=== PATIENT | female | born 1950 | race Caucasian/White ===

== ENCOUNTER 2022-06-17 09:23 | Outpatient (CLI) | payer MEDICARE, BC, SELFPAY ==
[2022-06-17 15:35] LABS: Vitamin B12* 737 pg/mL (243-894)
[2022-06-18 13:14] LABS: Rheumatoid Factor < 10 IU/mL (0-14)
== END 2022-06-17 09:24 | disposition home or self-care (01) ==
PROVIDERS: PCP Physician Assistant Medical; Visit Provider Physician Assistant Medical
DX: E78.5 Hyperlipidemia, unspecified (principal); M25.40 Effusion, unspecified joint; C44.91 Basal cell carcinoma of skin, unspecified
CPT/HCPCS: 82607; 82728; 84443; 86200; 86431

== ENCOUNTER 2022-09-25 13:39 | Outpatient (CLI) | payer MEDICARE, BC, SELFPAY ==
--- NOTE | 2022-09-25 13:45 | MR_ITS ---
[address] [address] Phone:?[phone] Fax:?[phone] Referring Physician Information: Peggy Haney PA-C [id number] [facility] [address] Phone:?[phone] Fax:?[phone] Patient:Laura Robert D.O.B:?1950 Sex:?Female Phone:?[phone] [facility] MRN:?[id number] Exam Date:?09/25/2022 ? EXAM: MRI of the RIGHT SHOULDER, without contrast CLINICAL INFORMATION: Female, 71 years old, with right shoulder pain. INDICATION: Evaluate for rotator cuff tear. PRIOR SURGERY: None reported. PLAIN FILMS: None available. COMPARISONS: No prior MRIs available. TECHNICAL INFORMATION: Using a 1.5T MR scanner and a localizing surface coil: coronal obliques: PD, T2, STIR sagittal obliques: PD, T2 axials: PD, T2 SEDATION: None CONTRAST: None FINDINGS: Bones: Proximal humerus: No fracture or marrow edema/pathology. No humeral Hill-Sachs or reverse Hill-Sachs lesion/impaction or contusion. Glenoid: No fracture or marrow edema/pathology. No osseous Bankart lesion. Rotator cuff and muscles/tendons: Supraspinatus: Moderate supraspinatus tendinopathy, with articular surface fraying, but without discrete tear. Infraspinatus: Mild infraspinatus tendinopathy, without tendon tear or muscle atrophy. Teres minor: No tendinopathy, tear or atrophy. Subscapularis: Mild-moderate tendinopathy of the superior distal subscapularis, without tendon tear or muscle atrophy. Deltoid: No strain or atrophy. Coracoacromial arch: Acromion morphology: The acromion has type II morphology. No discrete subacromial osseous spur or os acromiale. Acromiohumeral space: The acromiohumeral space measures 5.3 mm at its narrowest point (osseous distance). Coracohumeral space: The coracohumeral space is within normal limits. Acromioclavicular joint: Joint: Moderate AC joint arthropathy with approximately 4 mm of inferior osteophytosis, which results in a supraspinatus contour abnormality (sagittal PD series 7 image 12 and coronal T2 series 6 image 16). Ligaments: Coracoclavicular ligaments are intact. Bursae: Subacromial-subdeltoid: Mild subacromial-subdeltoid bursitis. Subcoracoid: No convincing subcoracoid bursal thickening/bursitis. Biceps tendon: The long head of the biceps tendon is present within the bicipital groove. Mild tendinopathy of the intra-articular biceps long head tendon, without displacement or split/tear. Glenohumeral joint: Effusion/cyst: Moderate glenohumeral joint effusion. Articular cartilage: Humeral head: Mild generalized thinning of the articular cartilage throughout the medial aspect of the humeral head, with minimal marginal osteophytosis. Glenoid: Moderate thinning of the articular cartilage throughout the anteroinferior glenoid, with mild-moderate posterior and mild anterior marginal osteophytosis and moderate reactive osseous changes. Loose bodies: No discrete intra-articular body within the joint. Labrum:?Circumferential degeneration and fraying of the labrum, which is of doubtful clinical significance. No paralabral cyst. Inferior glenohumeral ligament/axillary pouch:?Intact. The axillary pouch is normal in thickness and signal. No evidence of adhesive capsulitis or capsular injury. IMPRESSION: 1. Moderate supraspinatus, mild-moderate subscapularis, and mild infraspinatus tendinopathy. No rotator cuff tendon tear. 2. Mild narrowing of the acromiohumeral space with mild subacromial-subdeltoid bursitis. Additionally, inferior osteophytosis from moderate AC joint arthropathy results in a supraspinatus contour abnormality. 3. Mild osteoarthritis glenohumeral joint with a moderate joint effusion. 4. Mild tendinopathy of the intra-articular biceps long head tendon, without displacement or split/tear. 5. Circumferential degeneration fraying of the labrum, which is of doubtful clinical significant. No paralabral cyst. BC Electronically signed on 09/25/2022 9:14:00 PM by Maynor Murrell M.D.
== END 2022-09-25 13:40 | disposition home or self-care (01) ==
LOC: MRI 13:40
PROVIDERS: PCP Physician Assistant Medical; Visit Provider Physician Assistant Medical
DX: M25.511 Pain in right shoulder (principal); M75.51 Bursitis of right shoulder; M19.011 Primary osteoarthritis, right shoulder; M25.411 Effusion, right shoulder
CPT/HCPCS: 73221

== ENCOUNTER 2022-09-30 11:15 | Outpatient (RCR) | payer MEDICARE, BC, SELFPAY ==
--- NOTE | 2022-08-17 15:46 | PT.OPE ---
PT [facility] Eval PT [facility] Out[facility] Eval Start: 08/17/22 12:47 Freq: Status: Active Protocol: Document 08/17/22 15:44 CJT (Rec: 08/17/22 15:45 CJT [id number]) E-signed By Bry Barr PT Physical Therapy Outpatient Evaluation Insurance Information Recert Due Date 10/09/22 Insurance Name Medicare B,Blue Cross/Blue Shield Medical Diagnosis M25.511 - R shoulder pain Treating Diagnosis M25.511 - R shoulder pain Referring Peggy Salazar PA-C Subjective Subjective Pt presents with R shoulder pain ongoing for approx 5-6 weeks. Pt denies mechanism of injury. Has no trouble reaching in front or behind her body but is not able to to abduct past approx 80 degrees on R with elbow bent and this causes pain. Sleeping is when she is having the most pain and feels she is constantly having to move her arm to help reduce her pain. Pain is also worst in the morning and improves throughout the day or with movement. Pt is retired and spends her time taking care of her grandkids as well as spending time at her new cabin. Pt also notes that she had an unusual experience back in May where she woke up and both knees were very swollen and her hands were also swollen and she could not make a fist. This was shortly after she thinks she may have had covid. All tests for Lyme, RH factor, etc. came back negative and x-rays only showed arthritis in involved joints. Pt sas appointment to see Manager Of Product in [place] in September, referred via [facility] Date of Last Physician Visit 07/30/22 Current Work Status Retired Precautions Therapy Limitations/Systems Review Not Limited Objective Range of Motion Cervical ROM - WNL R Shoulder ROM Flexion/Abduction/IR/ER - 155/ 175/L2/90 L Shoulder ROM Flexion/Abduction/IR/ER - 170/ 175/T12/90 Strength R Shoulder Strength Flexion - 5/5 MMT Abduction - 4/5 MMT IR - 5/5 MMT ER - 3/5 MMT * inhibited by pain Empty Can - 5/5 MMT L Shoulder ROM - 5/5 MMT for all Other/Pertinent Objective Crossover, [place]'s, clunk, and crank tests positive for pain Assessment Assessment/Impression Pt is a 71 year old female who presents to OP PT clinic with complaints of R shoulder pain . Pt denies injury to the R shoulder and primary complaint is having trouble sleeping at night due to pain. When pt is moving her arm she is usually not having pain, pain seems to be made worse with rest. Testing reveals deficits in R shoulder strength and ROM (See objective) and pt reports high pain with palpation to R infraspinatus mm belly. Skilled PT services are medically necessary to address deficits and return patient to highest level of function. Recommend physical therapy sessions 2/week for 6 weeks. Pt agrees with this plan. Printout of HEP was given for I completion and pt gives verbal understanding of each exercise. Pt will be out of town until August 31. Will plan to start regular therapy visits at that time. Primary Functional Limitations Sleeping, lifting, reaching Plan of Care Rehabilitation Potential Good Physical Therapy Goals STG - To be completed in 2-3 weeks: 1. Pt will demonstrate improved shoulder flexion by 10+ degrees so that they may reach for cans of soup on top shelf in pantry. 2. Pt will report reduction in shoulder pain by factor of 2 so that they may sleep without waking due to pain while shifting position in the night . LTG - To be completed in 6 weeks: 1. Pt to be I with HEP so that they may I manage progression of symptoms. 2. Pt will report ability to lay on R shoulder in bed without increase in pain so that they may sleep in preferred position to achieve better night's sleep. 3. Pt will demo full and pain free shoulder ROM and strength so that they may return to recreational exercise with their friends. Treatment Plan/Direct Interventions Heat,Ice/Cold/Vasopneumatic, Joint Mobilization,Manual Therapy,Self-Care/Home Management,Therapeutic Exercises,Ultrasound Frequency/Duration 2/week for 6 weeks Patient Will Be Discharged From Therapy Completion of LTG(s),Skills Plateau,Independent w/HEP, Independently Progressing Evaluation Billing Untimed Code Treatment Minutes 40 PT Eval No Charge No Complexity Low Certification Information Initial Certification Date 08/17/22 Ending Certification Date 10/09/22 Provider Signature Shows Agreement With POC & Medical Necessity Physician Comment/Change Comment or Changes Physician NPI Number #
--- NOTE | 2022-09-17 12:00 | PT.OPDN ---
PT [place] Outpatient Daily Note PT [facility] Outpatient Daily Note Start: 08/17/22 12:47 Freq: Status: Active Protocol: Document 09/17/22 11:14 CJT (Rec: 09/17/22 12:00 CJT [id number]) E-signed By Bry Barr, PT PT OP Daily Progress Note Visit Information Note Type Daily Note Visit Number 4 Insurance Authorized Visits tbd Physician Authorized Visits eval and treat Insurance Information Recert Due Date 10/09/22 Insurance Name Medicare B,Blue Cross/Blue Shield Medical Diagnosis M25.511 - R shoulder pain Treating Diagnosis M25.511 - R shoulder pain Referring Peggy Salazar PA-C Subjective Subjective Pt having less pain at night. Still not able to elevate arm above level of shoulder. Pt agrees that additional imaging is necessary at this time. Home Exercise Home Exercise Comments [id number] Objective Other/Pertinent Objective Empty Can ROM: 60 degrees Strength limited in shoulder due to pain. Patient Instructed in Risks/Benefits Yes Therapeutic Exercise Therapeutic Exercise Minutes (minutes) 15 Therapeutic Exercise: To Restore UBE x 6 minutes Functional Status Wall [place] 2 x 10 Low horiz abduction 2 x 20 with PRB Manual Therapy Techniques Manual Therapy Minutes (minutes) 15 Manual Therapy Techniques STM to R rhomboids, thoracic paraspinals, and infraspinatus to reduce tissue tension and improve extensibility Treatment Minutes Timed Code Treatment Minutes 30 Total Treatment Time 30 Billing Units Manual Therapy Units 1 Therapeutic Exercise Units 2 Assessment/Impression Assessment/Impression Added low horizontal abduction and wall angels to HEP. Printout given for I performance. At this point it seems Lexy's shoulder pain is not going to continue to improve with therapy. She is able to achieve full ROM in her R shoulder, however, motions that require use of her supraspinatus are limited due to weakness and pain. This is likely due to a partial or complete tear of the R supraspinatus tendon. I do think it is prudent that advanced imaging for her R shoulder is completed and she consult with Dr. Cerna in orthopedics. Pt agrees with this plan. Will hold her future appointments until we receive word on imaging scheduling and/or imaging results. Plan of Care Physical Therapy Goals STG - To be completed in 2-3 weeks: 1. Pt will demonstrate improved shoulder flexion by 10+ degrees so that they may reach for cans of soup on top shelf in pantry. MET 2. Pt will report reduction in shoulder pain by factor of 2 so that they may sleep without waking due to pain while shifting position in the night . LTG - To be completed in 6 weeks: 1. Pt to be I with HEP so that they may I manage progression of symptoms. 2. Pt will report ability to lay on R shoulder in bed without increase in pain so that they may sleep in preferred position to achieve better night's sleep. 3. Pt will demo full and pain free shoulder ROM and strength so that they may return to recreational exercise with their friends. MET Daily Plan of Care Continue per POC Recertification Information Provider Signature Shows Agreement With POC & Medical Necessity
== END 2022-12-22 11:46 | disposition home or self-care (01) ==
PROVIDERS: PCP Physician Assistant Medical; Visit Provider Physician Assistant Medical
DX: M25.511 Pain in right shoulder (principal); Z51.89 Encounter for other specified aftercare
CPT/HCPCS: 97110; 97140; 97161; 97535

== ENCOUNTER 2023-06-09 08:30 | Outpatient (CLI) | payer MEDICARE, BC, SELFPAY | END 2023-06-09 08:31 | disposition home or self-care (01) | LOC: NFLDREF 06-10 07:34 | PROVIDERS: PCP Physician Assistant Medical; Referring Provider Physician Assistant Medical; Visit Provider Physician Assistant Medical | DX: E78.5 Hyperlipidemia, unspecified (principal) | CPT/HCPCS: 80053; 80061 ==

== ENCOUNTER 2024-05-18 11:28 | Outpatient (CLI) | payer MEDICARE, BC, SELFPAY ==
--- NOTE | 2024-05-18 11:30 | CRLHL7_ITS ---
For Patients: As a result of the Century Cures Act, medical imaging exams and procedure reports are released immediately into your electronic medical record. You may view this report before your referring provider. If you have questions, please contact your health care provider. BILATERAL SCREENING MAMMOGRAM WITH COMPUTER-AIDED DETECTION AND TOMOSYNTHESIS TECHNIQUE: CC and MLO views were obtained. These mammographic images have been obtained using full-field digital technique. These mammographic images were interpreted with the benefit of computer-aided detection. Breast Tomosynthesis was used in this interpretation. COMPARISON FILM: 04/13/23, 03/02/22, 10/07/20. FINDINGS: There are scattered areas of fibroglandular density. IMPRESSION: There is no radiographic evidence for malignancy. ASSESSMENT: BI-RADS Category 1: Negative RECOMMENDATION: Routine screening mammogram in 1 year. A lay language report of this examination will be provided to the patient. Noble Del Cid M.D. Diagnostic Radiologist [email or web address] SP/Dictated by: Noble Del Cid MD @ 05/24/2024 11:23:00 AM (Electronically Signed)
== END 2024-05-18 11:29 | disposition home or self-care (01) ==
LOC: MAMMO 11:28
PROVIDERS: PCP Physician Assistant Medical; Visit Provider Physician Assistant Medical
DX: Z12.31 Encounter for screening mammogram for malignant neoplasm of breast (principal)
CPT/HCPCS: 77063; 77067

== ENCOUNTER 2024-06-05 08:59 | Outpatient (CLI) | payer MEDICARE, BC, SELFPAY | END 2024-06-05 09:00 | disposition home or self-care (01) | LOC: NFLDREF 06-06 15:27 | PROVIDERS: PCP Physician Assistant Medical; Referring Provider Physician Assistant Medical; Visit Provider Physician Assistant Medical | DX: E78.5 Hyperlipidemia, unspecified (principal) | CPT/HCPCS: 80053; 80061 ==

== ENCOUNTER 2024-06-29 14:17 | Outpatient (CLI) | payer MEDICARE, BC, SELFPAY ==
--- NOTE | 2024-06-29 14:30 | CRLHL7_ITS ---
For Patients: As a result of the Century Cures Act, medical imaging exams and procedure reports are released immediately into your electronic medical record. You may view this report before your referring provider. If you have questions, please contact your health care provider. DXA BONE MINERAL DENSITY STUDY Reason for exam: Screening. Current height (in): 64. Weight (lb): 135. Menopause age: 52. Ethnicity: White. 1. Have you had a previous hip or vertebral fracture? No. 2. Have you had any fractures during your adult life which did not result from significant trauma (e.g., auto accident)? No. 3. Did either of your parents have a hip fracture? No. 4. Do you smoke? No. 5. Have you ever taken Glucocorticoids? No. 6. Do you have rheumatoid arthritis? No. 7. Do you have secondary osteoporosis? No. 8. Do you drink 3 or more alcoholic drinks per day? No. 9. Are you being treated for osteoporosis? No. 10. Have you ever taken any of the following medications: Actonel, Evista, Fosamax, Miacalcin, Reclast, Boniva, Forteo, HRT (i.e., estrogen/hormone therapy), Protelos, Prolia, Vitamin D, Calcium, other ??? please specify. ANSWER: Yes, vitamin D and calcium. 11. Do you have any of the following medical conditions: Anorexia or bulimia, asthma or emphysema, end stage renal disease, hyperparathyroidism, any seizure disorders, cancer, inflammatory bowel diseases, hysterectomy, other ??? please specify. ANSWER: No. 12. What was your maximum height (inches)? 64. 13. Do you perform weight bearing exercise regularly? Yes. 14. Do you regularly consume dairy products? Yes. 15. Do you drink caffeinated beverages? Yes. 16. At what age did your period start? 14. 17. Are you premenopausal? No. 18. How many full-term pregnancies have you had? 2. 19. Have you ever missed your period for more than 6 months in a row (not including or menopause)? No. TECHNIQUE: Bone mineral density study was performed using the [employer]. FINDINGS: The results of the study expressed as bone mineral density (BMD) are as follows: Lumbar spine L1 to L4: BMD: 0.848 g/cm2. T-score: -1.8. Z-score: 0.4 Neck Left: BMD: 0.627 g/cm2. T-score: -2.0. Z-score: -0.1 Right: BMD: 0.627 g/cm2. T-score: -2.0. Z-score: -0.1 Total Left: BMD: 0.788 g/cm2. T-score: -1.3. Z-score: 0.3 Right: BMD: 0.802 g/cm2. T-score: -1.2. Z-score: 0.4 IMPRESSION: Osteopenia. *Comparison exams done prior to 04/2020 were performed on different unit, So Protect Me. COMPARISON: Compared with scan of 03/25/2022, the bone mineral density has increased by 5.7 percent at the spine and increased by 0.4 percent at the hip. Compared with scan of 10/05/2019, the bone mineral density has decreased by 8.2 percent at the spine and increased by 5.2 percent at the hip. FRAX 10-year Fracture Risk Major Osteoporotic Fracture: 11% Hip Fracture: 2.4% Reported Risk Factors: [place] () Neck BMD=0.627, BMI=23.2 LIBRADO MAJOR M.D. Transcribed: 6:24 p.m. [email or web address] jj/Dictated by: Librado Major MD @ 07/03/2024 7:56:00 AM (Electronically Signed)
== END 2024-06-29 14:18 | disposition home or self-care (01) ==
LOC: RAD 14:18
PROVIDERS: PCP Physician Assistant Medical; Visit Provider Physician Assistant Medical
DX: Z13.820 Encounter for screening for osteoporosis (principal); M85.89 Other specified disorders of bone density and structure, multiple sites; Z78.0 Asymptomatic menopausal state
CPT/HCPCS: 77080

== ENCOUNTER 2025-05-31 11:15 | Outpatient (CLI) | payer MEDICARE, BC, SELFPAY ==
--- NOTE | 2025-05-31 11:30 | CRLHL7_ITS ---
For Patients: As a result of the Century Cures Act, medical imaging exams and procedure reports are released immediately into your electronic medical record. You may view this report before your referring provider. If you have questions, please contact your health care provider. INDICATION: BILATERAL SCREENING MAMMOGRAM, ASYMPTOMATIC 74 Y/O FEMALE COMPARISON: 05/18/2024, 04/13/2023, 03/02/2022 TECHNIQUE: Digital mammogram in CC and MLO projections including computer-aided detection (CAD) and tomosynthesis. BREAST COMPOSITION: The breasts are heterogeneously dense, which may obscure small masses. FINDINGS: No suspicious findings. ASSESSMENT: BI-RADS 1 Negative RECOMMENDATION: Annual screening mammogram. A lay language report of this examination will be provided to the patient. Dictated by: Noble Del Cid MD @ 06/01/2025 09:24:41 (Electronically Signed)
== END 2025-05-31 11:16 | disposition home or self-care (01) ==
LOC: MAMMO 11:15
PROVIDERS: PCP Physician Assistant Medical; Visit Provider Physician Assistant Medical
DX: Z12.31 Encounter for screening mammogram for malignant neoplasm of breast (principal); R92.333 Mammographic heterogeneous density, bilateral breasts
CPT/HCPCS: 77063; 77067

== ENCOUNTER 2025-06-14 07:39 | Outpatient (CLI) | payer MEDICARE, BC, SELFPAY | END 2025-06-14 07:40 | disposition home or self-care (01) | PROVIDERS: PCP Physician Assistant Medical; Visit Provider Physician Assistant Medical | DX: E78.2 Mixed hyperlipidemia (principal) | CPT/HCPCS: 80053; 80061; 84443 ==